=== PATIENT | female | born 1955 | race African-American/Black ===

== ENCOUNTER 2021-08-10 14:54 | Emergency (ER) | payer SELFPAY ==
[2021-08-10 14:56] VITALS: BP 189/114; PULSE 72; RESP 17; TEMP 36; O2SAT 97; BMI 30.9
--- NOTE | 2021-08-10 16:08 | EX.ED.DYSGE1 ---
HPI History of Present Illness Chief Complaint: Hypertension Narrative Narrative: Patient presents with elevated blood pressure for about the past week. She states she did have a headache last week but is not having them now. She does have a history of having headaches if her blood pressure is up. She has been on her doses of amlodipine and lisinopril hydrochlorothiazide for quite some time. She did state that last week she had a bit of a cold and a cough. She did take some [id number] medicine for this. She is not taking it right now. She also had some poor sleep because of the cough. She is no longer having any of those symptoms at all. She is also not taking the [id number]-gbhaaxm medicine for several days. Nothing really seems to make her blood pressure better or worse. She does not have chest pain or dyspnea. No change in urine output. No edema. [facility] Medical History (Updated 08/10/21 @ 17:[address] Obdulio Huber MD) HTN (hypertension) Home Medications Lisinopril/Hydrochlorothiazide [Zestoretic 20/25 Tablet] 1 tab PO DAILY #30 tablet 02/01/16 [Rx Last Taken Unknown] amlodipine 10 mg PO DAILY #30 tablet 02/01/16 [Rx Last Taken Unknown] clonidine HCl 0.1 mg PO BID #60 tab 08/10/21 [Rx Last Taken Unknown] Allergy/AdvReac Type Severity Reaction Status Date / Time No Known Allergies Allergy Verified 08/10/21 14:55 Social History Smoking Status: Never smoker ROS ROS ED Constitutional Constitutional ED: Denies chills or fever(s) Eyes Eyes: Denies blurry vision ENT ENT ED: Denies ear pain, rhinorrhea or sore throat Cardiovascular Cardiovascular: Denies chest pain Respiratory/Chest Respiratory/Chest: Reports other Details: See history of present illness regarding symptoms last week ; Denies cough, dyspnea or sputum Gastrointestinal Gastrointestinal: Denies nausea or vomiting Genitourinary Genitourinary ED: Denies dysuria Musculoskeletal Musculoskeletal: Denies arthralgias or myalgias Integumentary Denies rash Neurologic Neurologic: Reports headache(s) and other Details: No headache now but she did have one a few days ago. Psychiatric Psychiatric: Denies depression Endocrine Endocrinology: Denies polydipsia or polyuria Allergic/Immunologic Allergic/Immunologic ED: Denies mouth swelling or urticaria EXAM Physical Exam Const Vital Signs: 08/10/21 14:56 08/10/21 16:46 08/10/21 16:55 Temperature 96.8 F L Temperature Source Temporal Pulse Rate 72 57 L Respiratory Rate 17 Respiratory Effort Normal Non-Labored Respiratory Pattern Normal Blood Pressure 189/114 H 186/100 H Blood Pressure Mean 139 128 Pulse Ox 97 Oxygen Delivery Method Room Air 08/10/21 17:41 Temperature Temperature Source Pulse Rate 77 Respiratory Rate Respiratory Effort Respiratory Pattern Blood Pressure 200/115 H Blood Pressure Mean 143 Pulse Ox 100 Oxygen Delivery Method Room Air Positive well nourished and well developed General Appearance ED: well developed and NAD; Negative for cyanotic or diaphoretic HEENT Reports moist mucous membranes Negative for trauma or tenderness Eyes PERRL and EOMs intact bilaterally General Eye ED: Negative for pale conjunctiva or scleral icterus Neck no JVD Chest Wall inspection of chest normal Resp normal respiratory effort and clear to auscultation bilaterally Resp Narrative: No pain with deep breath. No rales anywhere including not at bases. Auscultation: Negative for rales Cardio regular rate, regular rhythm and no murmurs Rate: other Other Details: No muffled heart tones. No murmur. GI normal to inspection, nondistended, normoactive bowel sounds and non-tender Palpation: soft Back/Spine no CVA tenderness Extremity normal to inspection General Extremety ED: Negative for edema or tenderness General Extremity: Negative for edema Neuro oriented x3 Sensorium / Orientation: alert; Negative for orientation impaired, lethargic or stuporous Sensory Exam: No sensory level loss detected Motor Exam: Negative for strength abnormal Psych mental status grossly normal Skin no rashes or lesions noted, no wounds and skin turgor normal MDM MDM MDM Narrative Medical decision making narrative: Patient's CBC shows minimally low white count but no other marked abnormalities. Electrolytes showed a rise of her creatinine. However, the last creatinine I have is back from 2017. She does state that she has had kidney function problems but does not know what level she has had recently. Her blood pressure has been rechecked several times and she is hanging about 190/115. She is otherwise having no symptoms. She is having no chest pain or shortness of breath. Her lungs are clear. We discussed some options. She states she can contact her private physician and get in easily. She is blanking on her name at this time. I was thinking of calling her but I do not have that access because of this. I explained that we will hold the patient's lisinopril hydrochlorothiazide. We will put her on clonidine. She states she was on clonidine in the past and did well. She was switched to the lisinopril hydrochlorothiazide. I think she needs her kidney function checked again likely in about a week. If she has further symptoms she should return. Lab Data Attestation: I reviewed the patient's lab results. Labs: Laboratory Results - last 24 hr 08/10/21 08/10/21 16:40 16:40 WBC 3.7 L RBC 5.53 H Hgb 13.4 Hct 42.0 MCV 75.9 L MCH 24.2 L MCHC 31.9 L RDW Std Deviation 42.1 RDW Coeff of Martinez 15.5 H Plt Count 260 MPV 11.3 Immature Gran % (Auto) 0.500 Neut % (Auto) 52.8 Lymph % (Auto) 31.4 Hooker % (Auto) 14.5 H Eos % (Auto) 0.3 Baso % (Auto) 0.5 Absolute Neuts (auto) 2.0 Absolute Lymphs (auto) 1.17 Nucleated RBC % 0 Sodium 137 Potassium 4.6 Chloride 104 Carbon Dioxide 28.0 Anion Gap 5 BUN 22 H Creatinine 2.07 H Estim Creat Clear Calc 25.03 Est GFR (MDRD) Af Amer 31 L Est GFR (MDRD) Non-Af 26 L BUN/Creatinine Ratio 10.6 Glucose 205 H Calcium 8.5 Discharge Plan Triage Chief Complaint: Hypertension ED Provider: Obdulio Huber Dx/Rx/DC Orders Clinical Impression: Hypertension, Worsening renal function Instructions: Hypertension Dc, ED Renal Insufficiency Prescriptions: New clonidine HCl 0.1 mg tablet 0.1 mg PO BID Qty: 60 RF: 0 No Action amlodipine 10 MG tablet 10 mg PO DAILY Qty: 30 RF: 0 Lisinopril/Hydrochlorothiazide [Zestoretic 20/25 Tablet] 1 TABLET tablet 1 tab PO DAILY Qty: 30 RF: 0 Primary Care Provider: Terrie Elliott NP Referrals: Terrie Elliott NP, [facility] [Primary Care Provider] - As soon as possible Disposition Disposition: Home, Self Care
[2021-08-10 16:50] LABS: Absolute Lymphocyte Count 1.17 X10^3/uL (0.83-4.51); Basophil# 0.02 X10^3/uL; Basophil% 0.5 % (0-1); Eosinophil# 0.01 X10^3/uL; Eosinophils% 0.3 % (0-5); Hemoglobin 13.4 g/dL (12.0-15.0); Lymphocyte # 1.17 X10^3/ul (0.83-4.51); Lymphocyte % 31.4 % (19-41); Mean Corp Hgb Conc 31.9 g/dL (32-36); Mean Corpuscular Hgb 24.2 pg (27.0-32.0); Mean Corpuscular Volume 75.9 fL (81-99); Mean Platelet Vol. 11.3 fl (6.2-12.0); Monocyte# 0.54 X10^3/uL; Monocyte% 14.5 % (0-10); NRBC Flagged by Analyzer 0 % (0-5); Neutrophil # 1.97 X10^3/uL (2.7-7.7); Neutrophil % 52.8 % (47-70); Platelet Count 260 K/mm3 (150-450); RBC Distribution Width CV 15.5 % (11.6-14.6); RBC Distribution Width SD 42.1 fl (35.1-43.9); Red Blood Count 5.53 M/mm3 (4.2-5.4); White Blood Count 3.7 K/mm3 (4.4-11.0)
[2021-08-10 16:55] VITALS: BP 186/100; PULSE 57
[2021-08-10 17:13] LABS: Anion Gap 5 (5-15); BUN 22 mg/dL (7-18); BUN/Creat Ratio 10.6 RATIO (10-20); Calcium,Total 8.5 mg/dL (8.5-10.1); Chloride 104 mmol/L (98-107); Creatinine, Serum 2.07 mg/dL (0.55-1.02); EST Glomerular Filtration Rate 26 mL/min (>60); Est Glom Filt Rate - Afr Amer 31 mL/min (>60); Estimated Creatinine Clearance 25.03 ml/min; Glucose 205 mg/dL (74-106); Potassium 4.6 mmol/L (3.5-5.1); Sodium Level 137 mmol/L (136-145)
[2021-08-10 17:41] VITALS: BP 200/115; PULSE 77; O2SAT 100
[2021-08-10] MEDS: cloNIDine HCl 0.1 MG Tablet PO (17:45)
[2021-08-10 18:11] VITALS: BP 190/111
--- NOTE | 2021-08-11 11:15 | CASEMGMT ---
SAMSON BAUTISTA ED follow-up: Date of ER visit: 08/10/21 ER presenting complaint: Hypertension SAMSON BAUTISTA placed call to patient's telephone number listed on demographics, no answer. Unable to leave voicemail, mailbox full. SAMSON Galvez CM
== END 2021-08-10 18:14 | disposition home or self-care (01) ==
PROVIDERS: Emergency Provider Emergency Medicine; PCP Nurse Practitioner Adult Health; Visit Provider Emergency Medicine
DX: I10 Essential (primary) hypertension (principal)
CPT/HCPCS: 80048; 85025; 99282; A4216